=== PATIENT | male | born 1970 | race Caucasian/White ===

== ENCOUNTER 2018-06-17 22:12 | Emergency (ER) | payer OTHER ==
[~2018-06-17] VITALS: Ht 170.2 cm; Wt 75.0 kg
[~2018-06-17 22:12] MED LIST: NO MEDS
[2018-06-17 22:18] VITALS: BP 144/101
[2018-06-17] MEDS ORDERED: KEFLEX500 M1 PO (22:43)
[2018-06-17] MEDS ORDERED: BACTRIM DS1 TAB PO (22:43)
== END 2018-06-17 23:10 | disposition home or self-care (01) | DRG 603 ==
LOC: ED 22:12
DX: L02.413 Cutaneous abscess of right upper limb (principal); L02.211 Cutaneous abscess of abdominal wall; F17.210 Nicotine dependence, cigarettes, uncomplicated

== ENCOUNTER 2019-10-24 | Emergency (ER) | payer SELFPAY ==
[~2019-10-24] MED LIST changes: +BACTRIM DS1 TAB PO; +KEFLEX500 M1 PO
[2019-10-24 12:02] LABS: HEMATOCRIT 46.8 % (39.0-50.0); HEMOGLOBIN 15.7 g/dl (14.0-18.0); IMMATURE GRANULOCYTES 0.3 % (0.0-5.0); MEAN CELL VOLUME 93.2 fL CALC (80.0-100.0); MEAN CORPUSCULAR HGB 31.3 pG CALC (26.0-32.0); MEAN CORPUSCULAR HGB CONC 33.5 g/dL CAL (32.0-36.0); NEUT# 6.35 thou/uL (1.82-7.42); RED BLOOD COUNT 5.02 mill/uL (4.70-6.10); RED CELL DISTRI WIDTH 13.9 % (11.5-15.5)
[2019-10-24 12:15] LABS: ALBUMIN 4.2 g/dL (3.2-5.0); ALKALINE PHOSPHATASE 61 u/l (38-126); BUN 18 mg/dL (9-20); BUN/CREATININE RATIO 22 (12-20 (CALC)); CARBON DIOXIDE 26 mmol/l (22-30); CHLORIDE 101 mmol/l (95-108); CREATININE 0.9 mg/dL (0.7-1.3); GFR > 60 ML/MIN (>=60 (CALC)); GFR FOR AFR.AMER. > 60 ML/MIN (>=60 (CALC)); POTASSIUM 4.3 mmol/l (3.5-5.1); SGOT/AST 38 u/l (17-59)
[2019-10-24 12:19] LABS: ANION GAP 10 (6-22 (CALC)); BILIRUBIN, TOTAL 0.8 mg/dL (0.0-1.4); SODIUM 133 mmol/l (137-146)
== END 2019-10-24 13:43 | disposition short-term general hospital (02) | DRG 282 ==
PROVIDERS: Family Medicine
DX: I21.4 Non-ST elevation (NSTEMI) myocardial infarction (principal); I10 Essential (primary) hypertension; F17.210 Nicotine dependence, cigarettes, uncomplicated; I25.2 Old myocardial infarction; Z95.5 Presence of coronary angioplasty implant and graft
CPT/HCPCS: J1644

== ENCOUNTER 2020-08-11 11:36 | Emergency (ER) | payer MEDICAID ==
[~2020-08-11] VITALS: Ht 170.2 cm; Wt 68.0 kg
[2020-08-11] MEDS ORDERED: KEFLEX500 M1 PO (12:30)
[2020-08-11] MEDS ORDERED: BACTROBAN TOP (12:30)
[2020-08-11 12:36] VITALS: BP 153/77
== END 2020-08-11 12:47 | disposition home or self-care (01) ==
LOC: ED 11:36
DX: S60.463A Insect bite (nonvenomous) of left middle finger, initial encounter (principal); I10 Essential (primary) hypertension; E78.00 Pure hypercholesterolemia, unspecified; I25.2 Old myocardial infarction; F17.200 Nicotine dependence, unspecified, uncomplicated; W57.XXXA Bitten or stung by nonvenomous insect and other nonvenomous arthropods, initial encounter; Z95.5 Presence of coronary angioplasty implant and graft

== ENCOUNTER 2021-10-22 03:39 | Emergency (ER) | payer MEDICAID ==
[~2021-10-22] VITALS: Ht 170.2 cm; Wt 70.0 kg
[~2021-10-22 03:39] MED LIST changes: +BACTROBAN TOP
[2021-10-22 04:32] LABS: HEMATOCRIT 46.9 % (39.0-50.0); HEMOGLOBIN 15.4 g/dl (14.0-18.0); IMMATURE GRANULOCYTES 0.7 % (0.0-5.0); MEAN CORPUSCULAR HGB 30.9 pG CALC (26.0-32.0); MEAN CORPUSCULAR HGB CONC 32.8 g/dL CAL (32.0-36.0); NEUT# 5.21 thou/uL (1.82-7.42); RED BLOOD COUNT 4.99 mill/uL (4.70-6.10); RED CELL DISTRI WIDTH 13.3 % (11.5-15.5)
[2021-10-22 04:49] LABS: ALBUMIN 4.6 g/dL (3.2-5.0); ALKALINE PHOSPHATASE 75 u/l (38-126); AMYLASE 65 u/l (30-110); ANION GAP 16 (6-22 (CALC)); BILIRUBIN, TOTAL 0.3 mg/dL (0.0-1.4); BUN 18 mg/dL (9-20); BUN/CREATININE RATIO 18 (12-20 (CALC)); CARBON DIOXIDE 23 mmol/l (22-30); CHLORIDE 104 mmol/l (95-108); ETHYL ALCOHOL 0 mg/dl (0-30); GFR > 60 ML/MIN (>=60 (CALC)); GFR FOR AFR.AMER. > 60 ML/MIN (>=60 (CALC)); LIPASE 115 u/l (23-300); POTASSIUM 3.6 mmol/l (3.5-5.1); SGOT/AST 47 u/l (17-59); SODIUM 139 mmol/l (137-146); TOTAL PROTEIN 7.8 g/dL (6.3-8.2)
[2021-10-22 05:00] LABS: MYOGLOBIN 79 ng/mL (0 - 121)
[2021-10-22 06:23] VITALS: BP 163/100
== END 2021-10-22 07:51 | disposition home or self-care (01) ==
LOC: ED 03:39
PROVIDERS: Family Medicine
DX: L50.0 Allergic urticaria (principal); T50.995A Adverse effect of other drugs, medicaments and biological substances, initial encounter; F15.10 Other stimulant abuse, uncomplicated; I10 Essential (primary) hypertension; I25.2 Old myocardial infarction; E78.00 Pure hypercholesterolemia, unspecified; Z95.5 Presence of coronary angioplasty implant and graft; F17.200 Nicotine dependence, unspecified, uncomplicated
CPT/HCPCS: J2060

== ENCOUNTER 2022-11-22 14:34 | Emergency (ER) | payer OTHER ==
[~2022-11-22] VITALS: Ht 170.2 cm; Wt 75.0 kg
[2022-11-22] MEDS ORDERED: BACTRIM DS1 TAB PO (14:46)
[2022-11-22] MEDS ORDERED: CIPROFLOXACN500 MG PO (14:46)
[2022-11-22 16:20] VITALS: BP 127/83
== END 2022-11-22 16:00 | disposition home or self-care (01) ==
LOC: ED 14:34
DX: L03.116 Cellulitis of left lower limb (principal); I10 Essential (primary) hypertension; E78.00 Pure hypercholesterolemia, unspecified; I25.2 Old myocardial infarction; F17.200 Nicotine dependence, unspecified, uncomplicated

== ENCOUNTER 2022-12-14 23:00 | Emergency (ER) | payer OTHER ==
[~2022-12-14] VITALS: Ht 170.2 cm; Wt 75.0 kg
[~2022-12-14 23:00] MED LIST changes: +CIPROFLOXACN500 MG PO
[2022-12-15 00:22] VITALS: BP 116/83
[2022-12-15 00:30] VITALS: BP 126/81
[2022-12-15] MEDS ORDERED: KEFLEX500 MG PO (00:41)
[2022-12-15] MEDS ORDERED: BACTRIM DS1 TAB PO (00:41)
[2022-12-15 00:45] VITALS: BP 107/78
== END 2022-12-15 01:38 | disposition home or self-care (01) ==
LOC: ED 23:00
DX: S01.84XA Puncture wound with foreign body of other part of head, initial encounter (principal); X58.XXXA Exposure to other specified factors, initial encounter; Y93.89 Activity, other specified; L03.116 Cellulitis of left lower limb; I10 Essential (primary) hypertension; E78.00 Pure hypercholesterolemia, unspecified; I25.2 Old myocardial infarction; F17.200 Nicotine dependence, unspecified, uncomplicated

== ENCOUNTER 2023-02-02 00:28 | Emergency (ER) | payer OTHER ==
[~2023-02-02] VITALS: Ht 170.2 cm; Wt 68.0 kg
[2023-02-02] VITALS (10 sets, daily range): BP systolic 122–140; BP diastolic 79–92
[~2023-02-02 00:28] MED LIST changes: +KEFLEX500 MG PO
[2023-02-02 01:02] LABS: BASO% 0.3 % (0-3); EOS% 5.3 % (0-8); HEMATOCRIT 44.3 % (39.0-50.0); HEMOGLOBIN 14.9 g/dl (14.0-18.0); IMMATURE GRANULOCYTES 0.1 % (0.0-5.0); LYMPH% 33.2 % (15-41); MEAN CELL VOLUME 93.1 fL CALC (80.0-100.0); MEAN CORPUSCULAR HGB 31.3 pG CALC (26.0-32.0); MEAN CORPUSCULAR HGB CONC 33.6 g/dL CAL (32.0-36.0); MONO% 8.6 % (2-13); NEUT# 4.54 thou/uL (1.82-7.42); NEUT% 52.5 % (42-76); RED BLOOD COUNT 4.76 mill/uL (4.70-6.10); RED CELL DISTRI WIDTH 13.2 % (11.5-15.5)
[2023-02-02 01:15] LABS: ALBUMIN 4.4 g/dL (3.2-5.0); ALKALINE PHOSPHATASE 77 u/l (38-126); ANION GAP 12 (6-22 (CALC)); BUN 25 mg/dL (9-20); BUN/CREATININE RATIO 22 (12-20 (CALC)); CARBON DIOXIDE 23 mmol/l (22-30); CHLORIDE 106 mmol/l (95-108); CREATININE 1.1 mg/dL (0.7-1.3); GFR FOR AFR.AMER. > 60 ML/MIN (>=60 (CALC)); GFR OTHER RACES > 60 ML/MIN (>=60 (CALC)); POTASSIUM 3.3 mmol/l (3.5-5.1); SGOT/AST 74 u/l (17-59); SODIUM 137 mmol/l (137-146); TOTAL PROTEIN 7.4 g/dL (6.3-8.2)
[2023-02-02 01:25] LABS: D-DIMER 0.3 mg/L (0.19-0.60)
[2023-02-02 01:28] LABS: ACT PARTIAL THROMBO TIME 30.1 SECONDS (20.0-32.5); BILIRUBIN, TOTAL 0.7 mg/dL (0.2-1.3); PROTHROMBIN TIME 9.8 SECONDS (9.0-12.5)
== END 2023-02-02 03:01 | disposition home or self-care (01) ==
LOC: ED 00:28
PROVIDERS: Emergency Medicine
DX: F15.10 Other stimulant abuse, uncomplicated (principal); I10 Essential (primary) hypertension; I25.10 Atherosclerotic heart disease of native coronary artery without angina pectoris; F17.210 Nicotine dependence, cigarettes, uncomplicated; I25.2 Old myocardial infarction; Z95.5 Presence of coronary angioplasty implant and graft; T50.916A Underdosing of multiple unspecified drugs, medicaments and biological substances, initial encounter; Z91.128 Patient's intentional underdosing of medication regimen for other reason; Z91.199 Patient's noncompliance with other medical treatment and regimen due to unspecified reason

== ENCOUNTER 2023-07-04 15:05 | Emergency (ER) | payer SELFPAY ==
[~2023-07-04] VITALS: Ht 170.2 cm; Wt 74.8 kg
[2023-07-04] MEDS ORDERED: BACTRIM DS1 TAB PO (15:17)
[2023-07-04 15:41] VITALS: BP 138/72
== END 2023-07-04 15:50 | disposition home or self-care (01) | DRG 603 ==
LOC: ED 15:05
DX: L03.113 Cellulitis of right upper limb (principal); L02.413 Cutaneous abscess of right upper limb; I10 Essential (primary) hypertension; E78.00 Pure hypercholesterolemia, unspecified; I25.2 Old myocardial infarction; F17.200 Nicotine dependence, unspecified, uncomplicated

== ENCOUNTER 2023-07-09 10:13 | Emergency (ER) | payer SELFPAY ==
[~2023-07-09] VITALS: Ht 170.2 cm; Wt 75.0 kg
[2023-07-09 10:25] VITALS: BP 135/90
[2023-07-09] MEDS ORDERED: CEPHALEXIN500 M1 PO ×2 (10:27→10:31)
[2023-07-09] MEDS ORDERED: BACTRIM DS1 TAB PO ×2 (10:27→10:31)
[2023-07-09 10:31] VITALS: BP 107/76
[2023-07-09 10:32] VITALS: BP 107/76
== END 2023-07-09 10:41 | disposition home or self-care (01) | DRG 603 ==
LOC: ED 10:13
DX: L03.113 Cellulitis of right upper limb (principal); I10 Essential (primary) hypertension; I25.2 Old myocardial infarction; E78.00 Pure hypercholesterolemia, unspecified; F17.200 Nicotine dependence, unspecified, uncomplicated

== ENCOUNTER 2024-03-19 17:33 | Emergency (ER) | payer OTHER ==
[~2024-03-19] VITALS: Ht 170.2 cm; Wt 68.0 kg
[~2024-03-19 17:33] MED LIST changes: +CEPHALEXIN500 M1 PO
[2024-03-19] MEDS ORDERED: POVIDONE IODINE 0.5 OZ/BTL TOP STA (18:24)
[2024-03-19] MEDS ORDERED: LIDOcaine HCl 1% (Local Anesth.) 20 ML VIAL STI STA (18:24)
[2024-03-19] MEDS ORDERED: CEPHALEXIN500 M1 PO (18:38)
[2024-03-19 18:43] VITALS: BP 126/76
[2024-03-19 18:45] VITALS: BP 118/77
[2024-03-19 19:00] VITALS: BP 110/74
== END 2024-03-19 19:04 | disposition home or self-care (01) | DRG 581 ==
LOC: ED 17:33
PROC: 0H99XZZ Drainage of Perineum Skin, External Approach (ICD-10-PCS; principal; 2024-03-19)
DX: L02.215 Cutaneous abscess of perineum (principal); I10 Essential (primary) hypertension; I25.10 Atherosclerotic heart disease of native coronary artery without angina pectoris; E78.5 Hyperlipidemia, unspecified; I25.2 Old myocardial infarction; F17.200 Nicotine dependence, unspecified, uncomplicated; Z95.5 Presence of coronary angioplasty implant and graft